=== PATIENT | female | born 1990 | race Hispanic/Latino ===

== ENCOUNTER 2022-09-02 12:39 | Emergency (ER) | payer OTHER | END 2022-09-02 14:29 | disposition left against medical advice (07) | LOC: CSHERS 12:39 | DX: Z53.21 Procedure and treatment not carried out due to patient leaving prior to being seen by health care provider (principal) ==

== ENCOUNTER 2023-04-09 00:57 | Emergency (ER) | payer OTHER, SELFPAY | END 2023-04-09 02:15 | disposition home or self-care (01) | LOC: CSHERS 00:57 | DX: L98.9 Disorder of the skin and subcutaneous tissue, unspecified (principal); F17.210 Nicotine dependence, cigarettes, uncomplicated | CPT/HCPCS: 99283 ==